=== PATIENT | male | born 1995 | race Caucasian/White ===

== ENCOUNTER 2025-03-23 09:51 | Outpatient (AMB) | payer BC, SELFPAY ==
--- NOTE | 2025-03-23 09:52 | A.OFFPC_ITS ---
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 Logistics Technician Required: No Allergies No Known Allergies Allergy (Verified 03/23/25 10:05) Medication List - Last Reconciled 03/23/25 by VINCENT Loyd No Known Home Meds Tobacco use date assessed: 03/23/25 Dental Screening Dental Screen Date: 03/23/25 Did you have a dental visit in the last 12 months?: No Did you have a dental problem in the last 6 months where you did not have access to dental care?: No Was dental information given to patient?: Yes HPI HPI Comments History of Present Illness Details 30 y/o M with obesity, tourrettes with t ic disorder, ADHD, Speech delay/stuttering, mitral regurg, hypogonadism, 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 Mom, Johnna, provides details. Pediatric records reviewed. Morbid obesity: - The patient has a past medical history of morbid obesity with a BMI of 51.8. - His mother expressed concern about his risk for diabetes. s/p repair of transitional AV canal repair 10 months old/Mitral Regurg - The patient had major surgery for an a trioventricular (AV) canal defect - He saw a tennis instructor annually for fior tsang and then every two years, but follow- up was discontinued when he turned 18. - He is overdue for cardiology follow-up . - Offers no cardiac complaints History of Tourette's syndrome/ADHD - The patient was diagnosed with Tourett e's syndrome at a young age. - He currently has minimal symptoms, wit h only some tics noted. - Was on meds in childhood. None now. History of Ady-Schlatter disease R knee: - The patient was diagnosed in [facility] with a bump on his right knee, consistent with Oriental-Schlatter disease. - The condition does not currently bothe r him much and does not impede his ability to walk. History of developmental disorder: - The patient underwent extensive testin g as a child under a PDD umbrella. - He had an Individualized Education Pro gram (IEP) throughout school. - No definitive diagnosis was ever label ed, but providers agreed a condition was present. Hypogonadism s/p Testosterone injections. Was ff'd by Bessy yu in the past. Past Medical History - Morbid obesity (BMI 51.8) - Surgical repair of an atrioventricular (AV) canal defect at approximately age 1 - Tourette's syndrome diagnosed in child hamm - Developmental disorder evaluation in [facility] (under a PDD umbrella ) - Ady-Schlatter disease of the right knee diagnosed in [facility] Review of Systems - Neurological: Reports occasional tics. - Musculoskeletal: Reports a bump on the right knee which does not cause sign ificant pain. - Constitutional: Denies feeling antsy o r unusually stressed. Physical Exam General: Well developed, well nourished, in no acute distress. Appears stated age. Head: Normocephalic, atraumatic. Eyes: Pupils are equal, round and reactive to light and accommodation. Conjunctivae are clear. Lungs: Clear to auscultation bilaterally. No rales, rhonchi or wheeze noted. Good air flow in all regalado. Heart: Regular rate and rhythm, 2/6 systolic murmur Pulses: Peripheral pulses are equal and palpable bilaterally. Extremities: No clubbing, cyanosis nor edema is noted. Psych: Mood and affect appropriate. Neuro: Tic movements of head/neck. Defers to mom for details. Offers simple explanation of things. Results Pending Medical Decision Making The patient is a 30-year-old male with morbid obesity and multiple historical medical issues presenting to establish care. His blood pressure is elevated at 154/82 mmHg, which is a primary concern. To better assess this, I have recommended he begin home blood pressure monitoring with a wrist cuff for ease of use and will recheck his pressure at a two-week follow-up. Given the complexity of his cardiac history, specifically the AV canal repair and subsequent loss to follow-up, a cardiology referral is necessary. I will review his previous medical records before placing the referral to ensure continuity of care. The murmur heard today is likely postsurgical but requires specialist evaluation. To address the metabolic risks associated with his obesity, comprehensive labs, including a non-fasting A1c, will be drawn today. The patient is due for vaccinations, so Tdap and influenza immunizations will be administered during this visit. Regarding his chronic right knee bump from Oriental-Schlatter disease, I recommended a patella strap to prevent future arthritic changes. The patient will return in two weeks to review all results and reassess his blood pressure. Plan 1. Morbid Obesity - Ordered comprehensive labs, including a non-fasting HbA1c, to screen for metabolic disease, including diabetes. - Plan to follow up in 2 weeks to review lab results and discuss further management. 2. Elevated BP - Blood pressure was elevated on two tawnya dings during the visit, with the latter being 154/82 mmHg. - Recommended the patient purchase a wri st blood pressure cuff for home monitoring due to its ease of use. - Will recheck blood pressure at the 2-w gwinn follow-up visit before making a decision on initiating antihypertensive therapy. 3. s/p repair of transitional AV canal r epair 10 months old/MVR - Will place a referral to cardiology [facility], as the patient has been lost to follow-up since age 18. 4. History Of Ady-Schlatter Disease O f The Right Knee - Recommended the use of a jumper's knee patella strap to prevent the condition from worsening and to reduce the risk of future arthritis. 5. Preventative Care: Establishment Of C are - Administered influenza and Tdap immuni zations today. - Instructed patient and mother on activ ating and using the patient portal for communication and accessing results. - Scheduled a follow-up visit in [facility]. 6. Hypogonadism: Check T levels, if low consider referral to Uro or Endo. Patient Instructions - You will receive a flu shot and a teta nus (Tdap) shot today. - Please go to the lab for a blood draw before you leave the office today. - Purchase a wrist blood pressure cuff a nd check your blood pressure at home. When you take it, sit with your feet flat on the floor and your arm relaxed on a table. - Consider wearing a jumper's knee jimenez lla strap on your right knee to prevent problems in the future. - Schedule a follow-up appointment at [facility] for two weeks from now. - You will receive an email to activate the patient portal. Please open the link in the email today, as it expires in 24 hours. Use the portal to message our office in the future. - Before you leave, please stop at the f ront desk to sign a consent form that allows your mother to be involved in your medical care. Consent The patient's mother requested to be fully involved in his care. It was noted that a disclosure authorization form was not on file. The patient and his mother were instructed to ask the vest front presser to sign the appropriate consent form before leaving the office to ernie this authorization. Patient was informed and verbally consented to the use of an ambient scribe for clinic note documentation during this visit. Total time spent caring for the patient today was 60 minutes. This includes time spent before the visit reviewing the chart, time spent during the visit, and time spent after the visit on documentation, reviewing laboratory results, diagnostic imaging, medications, performing a medically necessary evaluation, counseling on diagnoses, care coordination, ordering appropriate tests, ordering appropriate medications, review of tests performed by other providers, reporting test results with the patient, communication with other healthcare providers. [facility] Medical History (Updated 03/23/25 @ 10:49 by TOM LoydKAYLEE) AV canal Surgical History (Updated 03/23/25 @ 10:48 by TOM LoydKAYLEE) History of open heart surgery No pertinent past surgical history Family History (Updated 03/23/25 @ 10:40 by Syd Stewart MA) Paternal Grandmother Cancer Social History (Updated 03/23/25 @ 10:01 by Syd Stewart MA) Household Members: None Both parents involved: No Caregiver staying overnight: No Housing: House Are you a primary veterinarian laboratory animal care to a significant other at home: No Do you presently have visiting nurse or other home services: No 75 years or older and lives alone: No Alcohol intake: current Alcohol intake frequency: a few times a week Patient Tobacco Use Status: Never used Tobacco e-Cigarette/Vaping Use: Never Used Second Hand Smoke Exposure: No service: No Current occupational status: employed Current occupation: [employer] Cognitive needs: No Hearing needs: No Vision needs: No Questionnaire PHQ-9 Over the last 2 weeks, how often have you been bothered by any of the following problems? 1. Little interest or pleasure in doing things: not at all 2. Feeling down, depressed, or hopeless: not at all 3. Trouble falling or staying asleep, or sleeping too much: several days 4. Feeling tired or having little energy: several days 5. Poor appetite or overeating: not at all 6. Feeling bad about yourself - or that you are a failure or have let yourself or your family down: not at all 7. Trouble concentrating on things, such as reading the newspaper or watching television: not at all 8. Moving or speaking so slowly that other people could have noticed. Or the opposite - being so fidgety or restless that you have been moving around a lot more than usual: not at all 9. Thoughts that you would be better off or of hurting yourself in some way: not at all Total score: 2 Depression Screening Interpretation: Negative Depression Screening Done: Yes 53205 - PHQ-9 Billing: Yes Source: Developed by Drs. Nick Russo, Bryanna Alexandra, Tom Simmons and colleagues, with an educational ernie from [employer]. Thrive Questionnaire Date Thrive assessed: 03/23/25 I am a: Patient What is your living situation today?: I have a steady place to live Within the past 12 months, did the food you bought not last and you didn't have the money to get more?: Never true Within the past 12 months, did you worry whether your food would run out before you got money to buy more?: Never true Do you have trouble paying for medicines?: No Do you have trouble getting transportation to medical appointments?: No Do you have trouble paying your heating and electricity bill?: No Do you have trouble taking care of your child, family member or friend?: No Do you have trouble with day-to-day activities such as bathing, preparing meals, shopping, managing finances, etc.?: No Are you currently unemployed and looking for a job?: No Are you interested in more education?: Yes Please select the resources that you would like help with: Housing/Jail and Food Currently or been in a relationship where the following occur: No concerns reported THRIVE Score: 0 AUDIT C Alcohol Use Questionnaire (AUDIT-C) 1. How often do you have a drink containing alcohol?: 2-3 times a week 2. How many drinks containing alcohol do you have on a typical day when you are drinking?: 3 or 4 3. How often do you have six or more drinks on one occasion?: Never Total Score: 4 Score Reviewed/Action Taken: Yes NATHANIEL-7 AMB Questionnaire NATHANIEL-7 Date NATHANIEL - 7 assessed: 03/23/25 Feeling nervous, anxious, or on edge: 0 = Not at all Not being able to stop or control worryin = Not at all Worrying too much about different things: 1 = Several days Trouble relaxin = Not at all Being so restless that it is hard to sit still: 0 = Not at all Becoming easily annoyed or irritable: 0 = Not at all Feeling afraid as if something awful might happen: 0 = Not at all Total NATHANIEL-7 score (0-4 normal; 5-9 mild; 10-14 moderate; 15-21 severe): 1 Source: Developed by Drs. Nick Russo, Bryanna Alexandra, Tom Simmons and colleagues, with an educational ernie from [employer]. NATHANIEL-7 Assessment Billing NATHANIEL-7 Assessment Tool: NATHANIEL-7 Assessment 84025 Physical exam (Primary Care) Vital Signs: Last Vital Signs Temp 97.2 F 03/23/25 09:58 Pulse 93 03/23/25 09:58 Resp 14 03/23/25 09:58 BP 154/84 H 03/23/25 10:17 Pulse Ox 95 03/23/25 09:58 Oxygen Delivery Method Room Air 03/23/25 09:58 BMI result Body Mass Index 51.8 BMI Assessment/Plan discussion: High BMI High, discussed plan: lifestyle Tobacco/Smoking Status: Tobacco use Status Tobacco use date assessed 03/23/25 03/23/25 09:56 Patient Tobacco Use Status Never used Tobacco 03/23/25 10:01 e-Cigarette/Vaping Use Never Used 03/23/25 10:01 PHQ-9: PHQ-9 Score PHQ-9: Total score 2 03/23/25 10:06 Depression Screening Interpretation: Negative Thrive Assessment: Date of Thrive Assessment Date Thrive assessed 03/23/25 03/23/25 09:56 Currently or been in a relationship where the following occur: No concerns reported Office Procedures Flu Questionnaire Does the patient have a severe egg allergy?: No Does the patient have severe life threatening allergies?: No Does the patient have a fever or illness today?: No Has the patient ever had Guillain-Winfield Syndrome?: No Has the patient ever had any past reaction to a flu shot?: No Immunizations Fluarix [id number] (PF) 45 mcg (15 mcg x 3)/0.5 mL IM syringe Performing Provider: INNA Loyd Performing Location: [facility] Family Medicine Administered by: Syd Stewart MA on 03/23/25 10:37 Dose Route Admin Location Dispensed Lot Number Expiration Date NDC Mushroom Grower 0.5 mL IM Left Deltoid 0.5 mL [id number] 11/17/25 [id number] [employer] SM[employer] VIS Given Date VIS Provided VIS Publication Date 03/23/25 Single Vaccine 24 Eligibility Eligibility Date Funding Source Not VFC Eligible 03/23/25 Private Boostrix Tdap 2.5 Lf unit-8 mcg-5 Lf/0.5 mL intramuscular syringe Performing Provider: INNA Loyd Performing Location: [facility] Family Medicine Administered by: Syd Stewart MA on 03/23/25 10:37 Dose Route Admin Location Dispensed Lot Number Expiration Date ND Mushroom Grower 0.5 mL IM Right Deltoid 0.5 mL [id number] 04/17/27 [id number] [employer]LAX KeynoirITHKLINE Total Dispensed Waste 0.5 mL 0 % VIS Given Date VIS Provided VIS Publication Date 03/23/25 Single Vaccine 20 Eligibility Eligibility Date Funding Source Not VFC Eligible 03/23/25 Private Coding Level of Care Code New Pt Level 5 (33200) Complex EM visit Add On G2211 Diagnoses Encounter to establish care Z76.89 BMI 50.0-59.9, adult Z68.43 Tic disorder F95.9 Tourettes disorder F95.2 Laboratory exam ordered as part of routine general medical examination Z00.00 Need for Tdap vaccination Z23 Influenza vaccination administered at current visit Z23 Atrioventricular canal (AVC), transitional Q21.22 Mitral regurgitation I34.0 Ady-Schlatter's disease of right lower extremity M92.521 Developmental delay, borderline R62.50 ADHD F90.9 Stuttering F80.81 Hypogonadism in male E29.1 Elevated blood pressure reading in office without diagnosis of hypertension R03.0 Additional Codes NATHANIEL-7 Assessment Billing - NATHANIEL-7 Assessment Tool: NATHANIEL-7 Assessment 33834 ([id number]) PHQ-9 - 30962 - PHQ-9 Billing: Yes ([id number]) Assessment & Plan Assessment & Plan (1) Encounter to establish care: Code(s): Z76.89 - Persons encountering health services in other specified circumstances (2) BMI 50.0-59.9, adult: Code(s): Z68.43 - Body mass index [BMI] 50.0-59.9, adult Category: Medical (3) Tic disorder: Code(s): F95.9 - Tic disorder, unspecified Category: Medical (4) Tourettes disorder: Code(s): F95.2 - Tourette's disorder Category: Medical (5) Laboratory exam ordered as part of routine general medical examination: Code(s): Z00.00 - Encounter for general adult medical examination without abnormal findings Category: Medical (6) Need for Tdap vaccination: Code(s): Z23 - Encounter for immunization Category: Medical (7) Influenza vaccination administered at current visit: Code(s): Z23 - Encounter for immunization Category: Medical (8) Atrioventricular canal (AVC), transitional: Comment: S/P REPAIR AGE 10 MONTHS Code(s): Q21.22 - Transitional atrioventricular septal defect Category: Medical (9) Mitral regurgitation: Code(s): I34.0 - Nonrheumatic mitral (valve) insufficiency Category: Medical (10) Oriental-Schlatter's disease of right lower extremity: Code(s): 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, right leg Category: Medical (11) Developmental delay, borderline: Comment: Mom, Johnna, is the preferred contact Code(s): R62.50 - Unspecified lack of expected normal physiological development in childhood Category: Medical (12) ADHD: Code(s): F90.9 - Attention-deficit hyperactivity disorder, unspecified type Category: Medical (13) Stuttering: Code(s): F80.81 - Childhood onset fluency disorder Category: Medical (14) Hypogonadism in male: Code(s): E29.1 - Testicular hypofunction Category: Medical (15) Elevated blood pressure reading in office without diagnosis of hypertension: Code(s): R03.0 - Elevated blood-pressure reading, without diagnosis of hypertension Category: Medical Plan . Orders: Orders Complete Blood Count no Diff Today Z00.00 - Encounter for general adult medical examination without abnormal findings Comprehensive Met. Panel Today Z00.00 - Encounter for general adult medical examination without abnormal findings Hemoglobin A1c Today Z00.00 - Encounter for general adult medical examination without abnormal findings Microalbumin, Random (w Creat) Today Z00.00 - Encounter for general adult medical examination without abnormal findings TDaP Immunization Today Z23 - Encounter for immunization Influenza [id number] Immunization Today Z23 - Encounter for immunization Lipid Panel Today Z00.00 - Encounter for general adult medical examination without abnormal findings TSH reflex Free T4 Today Z00.00 - Encounter for general adult medical examination without abnormal findings Vitamin B12 and Folate Today Z00.00 - Encounter for general adult medical examination without abnormal findings Vitamin D 25-OH Total Today Z00.00 - Encounter for general adult medical examination without abnormal findings Testosterone, Free/Total Today E29.1 - Testicular hypofunction Referrals Cardiology Referral I34.0 - Nonrheumatic mitral (valve) insufficiency, Q21.22 - Transitional atrioventricular septal defect Patient Instructions: Walk-In Care (Urgent Care): We Make it Easy Walk-in for urgent medical issues such as: ? Seasonal Allergies ? Insect Bites ? Cough ? Diarrhea ? Acute Asthma Attacks ? Back, Knee or Joint Pain ? Ear Infection ? Fever without a Rash ? Headaches ? Nausea ? Suff[place] Eye, Rash or Skin Irritation ? Sore Throat ? Sports Physicals ? Vomiting Most insurances are accepted. Patients do not need to be part of the [facility] to seek care at the walk-in clinic. Locations [address], [place] Open Sunday through Sunday 8am-5pm *Hours may vary due to staffing availability. To confirm Walk-In Care hours please call. [facility] [address] [address] ? [phone] [facility] Walk-In Care in [place] provides services to ages 18 and over. Open Sunday-Sunday: 7 a.m. to 5 p.m. and Sunday: 9 a.m. to 3 p.m.* *Hours may vary due to staffing availability. To confirm Walk-In Care hours in [place], please call [phone]. [address] [place] [address] ? [phone] [facility] Walk-In Care in [place] provides services to ages 12 and over. Open Sunday-Sunday: 8 a.m. to 5 p.m. Hours may vary due to staffing availability. To confirm Walk-In Care hours in [place], please call [phone]. LABORATORY SERVICES: [facility] Lab ? Primary Location [address] [place] [address] Sunday through Sunday 6:00 AM ? 5:00 PM Sunday 7:00 AM ? 11:00 AM* [phone] The [facility] Lab is centrally located near the front entrance of the [facility] for easy outpatient access. Convenient parking is provided for outpatients. *Hours may vary due to staffing availability. To confirm Laboratory hours for any location, please call [phone]. Offsite Location For your convenience, we offer offsite laboratory draw stations at the following locations: [address] [place] [address] ? [address], [address] Sunday through Sunday 7:30 AM ? 1:00 PM* [phone] *Hours may vary due to staffing availability. To confirm Laboratory hours for any location, please call [phone]. [place] ? [address] Sunday through Sunday 6:00 AM ? 3:30 PM* Sunday 6:30 AM ? 3 PM* [phone] *Hours may vary due to staffing availability. To confirm Laboratory hours for any location, please call [phone] [place] [address] Sunday through Sunday 7:30 AM ? 4:00 PM* [phone] *Hours may vary due to staffing availability. To confirm Laboratory hours for any location, please call [phone]. [facility] Sunday through 9:00 AM ? 4:00 PM* *Hours may vary due to staffing availability. To confirm Laboratory hours for any location, please call [phone]. Appointments are not necessary. Walk-ins are welcome. Like all the departments throughout the [facility], our Lab undergoes frequent reviews to ensure the quality and accuracy of test results, and our staff takes special pride in its status as a nationally accredited facility. Patient Portal: [facility] ONE PATIENT. ONE RECORD. BETTER CARE. [facility] has a fully integrated, cutting- edge mobile electronic health information system that has revolutionized the way we care for our patients and manage our organization. This system improves communication and coordination enabling us to provide safe, higher-quality care, and an overall positive experience for staff and patients. Our first priority, as always, is to deliver the highest quality care possible. The system is running in the background supporting that priority. This portal is for all [facility] services and practices. If you are experiencing any technical difficulties with enrolling or logging into the Patient Portal please complete the [facility] Patient Portal Technical Support Form. [facility] now offers a new secure on-line interactive tool for patients to review their health information ? ?Patient Portal. This interactive web portal will enable patients and their families to take an active role in their care by providing easy, secure access to their health information via the internet. The Patient Portal provides patients with instant access to their health information, including laboratory results, medications, allergies, demographic information, visit history, and more. In addition to managing their own care, parents and health care proxies with authorized consent will appreciate the ability to access the records of those individuals for whom they provide care. Please note: if you wish to gain access (Proxy) to another patient?s portal, you will be required to come to the Medical Records Department in person at [facility]. Both the patient giving proxy access and the proxy will need to provide photo identification and complete the appropriate authorization. The Patient Portal also allows track their appointments online. The [facility] Patient Portal also saves patients time by allowing them to submit updates to their demographic and contact information prior to their visits. Portal email notifications will also alert patients to any new activity on their portal, such as test results and new appointments. In order to initially enroll in the [facility] Patient Portal, you will need to enter some required information including the following: * your [facility] Medical Record number * your personal home email address * name * date of Please note: In order to enroll in the [facility] Patient Portal, we need to have your email address on file in your electronic medical record. ?The email address needs to be specific for one person (yourself) in order for your Portal enrollment to be successful. ?You can update your email address in person with our Registration staff when you are registering for a hospital visit. ?Otherwise, you will need to come to the Health Information Management (Medical Records) Department at [facility]. ?We are open from Sunday ? Sunday from 7:30 a.m. ? 4:30 p.m. ?You will be required to present a photo id. Once you have successfully enrolled in the Patient Portal, you will receive a one-time user id and password for the Portal, sent to your email address. ?This will allow you to log into the Patient Portal within 99 hrs and reset your own logon id and password, and define personal security questions. ?Once your permanent login and password have been set, you can log into the [facility] Patient Portal at any time via the blue button above or from the Portal Logon button on any page of the [facility] website. [facility] and [facility] encourage all of our patients to enroll in Patient Portal as it presents a valuable opportunity for patients and their families to actively participate in their care and stay healthy Welcome to [facility]. ?We look forward to working with you.
[2025-03-23 09:58] VITALS: BP 152/74; PULSE 93; RESP 14; TEMP 36.2; O2SAT 95; BMI 51.8
[2025-03-23 10:17] VITALS: BP 154/84
== END 2025-03-23 10:38 | disposition home or self-care (01) ==
LOC: HO.HMCFM 09:51
PROVIDERS: PCP Nurse Practitioner Family; Visit Provider Nurse Practitioner Family
DX: Z76.89 Persons encountering health services in other specified circumstances (principal); F90.9 Attention-deficit hyperactivity disorder, unspecified type; Z68.43 Body mass index [BMI] 50.0-59.9, adult; F95.9 Tic disorder, unspecified; F95.2 Tourette's disorder; Z00.00 Encounter for general adult medical examination without abnormal findings; Z23 Encounter for immunization; Q21.22 Transitional atrioventricular septal defect; I34.0 Nonrheumatic mitral (valve) insufficiency; M92.521 Juvenile osteochondrosis of tibia tubercle, right leg; R62.50 Unspecified lack of expected normal physiological development in childhood; F80.81 Childhood onset fluency disorder; E29.1 Testicular hypofunction; R03.0 Elevated blood-pressure reading, without diagnosis of hypertension

== ENCOUNTER 2025-03-23 09:51 | Outpatient (REF) | payer BC, SELFPAY ==
[2025-03-23 14:14] LABS: Hematocrit 44.1 % (42.0-52.0); Hemoglobin 14.8 g/dl (14.0-18.0); Mean Corpuscular HGB Conc 33.6 g/dl (31.0-36.0); Mean Corpuscular Hemoglobin 30.8 pg (27.0-33.0); Mean Corpuscular Volume 91.7 fL (80.0-98.0); NRBC Abs Auto 0.000 X10*3/uL (0.0-0.012); NRBC Pct Auto 0.0 /100WBC (0.0-0.2); Platelet Count 389 X10*3/uL (160-400); Red Blood Count 4.81 X10*6/uL (4.60-5.80); White Blood Count 13.9 X10*3/uL (4.8-10.8)
[2025-03-23 14:37] LABS: Microalbum/Creatinine Ratio Ur 5.4 ug/mg cr (<30)
[2025-03-23 14:47] LABS: Alanine Aminotransferase 55 U/L (0-40); Albumin Level 4.7 g/dL (3.5-5.0); Alkaline Phosphatase 86 U/L (39-117); Anion Gap 12 (12-20); Aspartate Amino Transferase 64 U/L (5-37); Blood Urea Nitrogen 19 mg/dL (9-16); Calcium 9.2 mg/dL (8.4-10.2); Carbon Dioxide 27 mmol/L (22-29); Chloride 106 mmol/L (96-108); Cholesterol 154 mg/dL (<200); Estimated Glomerular Filt Rate > 60; HDL Cholesterol 31 mg/dL (>40); Potassium 3.8 mmol/L (3.3-5.1); Sodium 141 mmol/L (135-145); Total Protein 7.8 g/dL (6.5-8.0); Triglycerides 321 mg/dL (<150)
[2025-03-23 15:03] LABS: Folate 11.0 ng/mL (> or = 4.0); Vitamin B12 624 pg/mL (200-900)
[2025-03-29 11:09] LABS: Testosterone, Free 55.9 pg/mL (35.0-155.0)
== END 2025-03-23 09:52 | disposition home or self-care (01) ==
LOC: HO.WFDLDS 09:51
PROVIDERS: PCP Nurse Practitioner Family; Visit Provider Nurse Practitioner Family
DX: Z00.00 Encounter for general adult medical examination without abnormal findings (principal); E66.01 Morbid (severe) obesity due to excess calories; F95.2 Tourette's disorder; F90.9 Attention-deficit hyperactivity disorder, unspecified type; M92.521 Juvenile osteochondrosis of tibia tubercle, right leg; E29.1 Testicular hypofunction; F95.9 Tic disorder, unspecified; Q21.22 Transitional atrioventricular septal defect; I34.0 Nonrheumatic mitral (valve) insufficiency; R62.50 Unspecified lack of expected normal physiological development in childhood; F80.81 Childhood onset fluency disorder; R03.0 Elevated blood-pressure reading, without diagnosis of hypertension; Z23 Encounter for immunization; Z76.89 Persons encountering health services in other specified circumstances; Z68.43 Body mass index [BMI] 50.0-59.9, adult; Z13.1 Encounter for screening for diabetes mellitus
CPT/HCPCS: 36415; 80053; 80061; 82043; 82306; 82570; 82607; 82746; 83036; 84402; 84403; 84443; 85027; 90471; 90472; 90656; 90715; 96127

== ENCOUNTER 2025-05-06 10:04 | Outpatient (AMB) | payer BC, SELFPAY ==
--- NOTE | 2025-05-06 10:11 | A.OFFPC_ITS ---
Vital Signs 05/06/25 10:17 05/06/25 10:43 05/06/25 10:43 Height 6 ft Weight 387 lb 6 oz BMI 52.5 BP 140/80 H 134/90 H 145/103 H Blood Pressure Location Rt brachial Rt brachial Lt radial Position Sitting Sitting Sitting Respiration 14 Pulse 91 Pulse Source Pulse Oximeter Temp 97.7 F Temp Source Oral Pulse Oximetry (%) 98 Oxygen Delivery Method Room Air Intake Visit Reasons: 2 weeks 30 min FU BP/labs Intake Note: Follow up to htn and review labs. Patient c/o right knee px and patient was wrapping it but is not helping. Rn School Required: No Allergies No Known Allergies Allergy (Verified 05/06/25 10:40) Medication List - Last Reconciled 05/06/25 by INNA Loyd No Known Home Meds Tobacco use date assessed: 05/06/25 Dental Screening Dental Screen Date: 05/06/25 Did you have a dental visit in the last 12 months?: Yes Did you have a dental problem in the last 6 months where you did not have access to dental care?: No Was dental information given to patient?: Patient has dentist HPI HPI Comments History of Present Illness Details 30 y/o M with obesity, tourrettes with t ic disorder, ADHD, Speech delay/stuttering, mitral regurg, hypogonadism, 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 Essential Hypertension: - The patient has had elevated blood pre ssure readings, with home measurements in the 140s systolic. - Home blood pressure log readings inclu ded 152/88, 138/87, 135/92, and one high reading of 155/105. - A referral was previously made to [facility] for care s/p repair of transitional AV canal repair 10 months old , but the patient had not yet called to schedule the appointment. Metabolic abnormalities: - Lab work from March 23 revealed se veral abnormalities. - The patient's white blood cell count w as slightly elevated at 13.9, though he did not recall being ill at the time. - Liver enzymes (AST 64, ALT 55) were sl ightly elevated, a finding also noted on past lab work. - Lipid panel showed high triglycerides at 321 and low HDL at 31. - He was also found to have low vitamin D and low testosterone levels. - The patient has a history of low testo sterone managed by pediatric endocrinology with shots in the past. Knee Pain R: - The patient has ongoing knee pain for which he uses a band. - The band was initially helpful but see ms less effective recently. 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 - He recently experienced increased pain that caused him to walk with a limp. Review of Systems - Constitutional: Denies feeling sick at the time of his labs in March. - Endocrine: Denies diabetes. - Musculoskeletal: Reports intermittent knee pain, sometimes causing a limp, which is aggravated by pivoting movements at work. Physical Exam General: Well developed, well nourished, in no acute distress. Appears stated age. Head: Normocephalic, atraumatic. Eyes: Pupils are equal, round and reactive to light and accommodation. Conjunctivae are clear. Lungs: Clear to auscultation bilaterally. No rales, rhonchi or wheeze noted. Good air flow in all regalado. Heart: Regular rate and rhythm, 2/6 systolic murmur Pulses: Peripheral pulses are equal and palpable bilaterally. Extremities: No clubbing, cyanosis nor edema is noted. Psych: Mood and affect appropriate. Neuro: Tic movements of head/neck. Defers to mom for details. Offers simple explanation of things. Results see below - In-office blood pressure: 134/90 mmHg (manual cuff). Medical Decision Making The patient is a 30-year-old male with confirmed hypertension based on elevated home and in-office readings, necessitating initiation of antihypertensive medication. I will prescribe valsartan 40 mg, a low-dose ARB, to begin treatment. His lab work reveals a constellation of metabolic issues including mixed hyperlipidemia and mildly elevated transaminases, consistent with non- alcoholic fatty liver disease, especially given his history. These conditions, along with his hypertension, will benefit significantly from diet and lifestyle changes. A referral to a room designer is indicated and was placed, with a virtual option available for the patient's convenience. His known history of low testosterone and current low levels warrant specialist evaluation for energy, muscle, and bone health implications. I have referred him to Endocrinology, which is a better fit than Urology as they can provide comprehensive care for his testosterone, fatty liver, and other metabolic issues, and offer the virtual visits he prefers. He also has vitamin D deficiency, which will be addressed with an [id number] supplement. For his knee pain, which appears to be mechanical and related to his work, a conservative approach with topical diclofenac cream is a reasonable first step. We will follow up in 8 weeks to assess his blood pressure response and repeat labs, specifically a BMP to monitor for hyperkalemia from valsartan and a CBC to re-evaluate the leukocytosis. Plan 1. Essential Hypertension/ repair of tra nsitional AV canal repair 10 months old - Initiate valsartan 40 mg once daily. - The goal is to achieve consistent bloo d pressure readings with systolic < 140 mmHg and diastolic < 90 mmHg. - Patient to continue home blood pressur e monitoring and bring log to follow-up. - Patient advised to call and schedule t he pending cardiology referral appointment with [facility]. 2. Mixed Hyperlipidemia And Non-Alcoholi c Fatty Liver Disease - Placed referral to nutrition for diet and lifestyle counseling, with a virtual option available. - Encouraged increased physical activity to help improve HDL cholesterol. 3. Hypogonadism - Placed referral to endocrinology for e valuation and management of low testosterone. - This specialty was chosen as they can also help manage his other metabolic issues and offer virtual follow-ups. 4. Vitamin D Deficiency - Prescribed a daily vitamin D supplemen t. 5. Knee Pain R - Advised to apply a topical anti-inflam matory cream before work and then place his knee band over it. - Prescribed diclofenac cream and advise d of the [id number] alternative Voltaren if the prescription is denied or has a high copay. 6. Leukocytosis - Will recheck CBC with his other labs a t the next visit to ensure normalization. 7. Follow-Up Care - [facility] a [facility]. - Labs (BMP to check potassium and CBC) to be drawn at the time of the next visit; fasting is not required. Patient Instructions - Take one valsartan 40 mg tablet by johnnie th once daily for your blood pressure. - Take one vitamin D tablet by mouth onc e daily. - Continue to check your blood pressure at home. Please bring your blood pressure machine and its readings to your next appointment. - For your knee pain, apply the prescrib ed anti-inflammatory cream (diclofenac) to the area before work, then put your knee band on. If your insurance does not cover this or it is too expensive, you can buy Voltaren cream over the counter. - You will need to [facility] to schedule your senior design engineering specialist appointment. - Our office will call you to schedule a ppointments with a room designer (for diet) and an section leader screen printing (for hormones). These will be at the [place] office, but you can do some visits virtually. - Return to the clinic in about 8 weeks for a follow-up visit to recheck your blood pressure and get blood work done. You do not need to fast for the blood test. Consent The patient and his mother were present for the discussion of the assessment and plan. They verbally agreed to the new medications (valsartan, vitamin D, topical diclofenac), specialist referrals (cardiology, endocrinology, nutrition), and follow-up plan, including repeat lab work. All questions were answered. Patient was informed and verbally consented to the use of an ambient scribe for clinic note documentation during this visit. Total time spent caring for the patient today was 40 minutes. This includes time spent before the visit reviewing the chart, time spent during the visit, and time spent after the visit on documentation, reviewing laboratory results, diagnostic imaging, medications, performing a medically necessary evaluation, counseling on diagnoses, care coordination, ordering appropriate tests, ordering appropriate medications, review of tests performed by other providers, reporting test results with the patient, communication with other healthcare providers. [facility] Medical History (Updated 05/06/25 @ 11:30 by INNA Loyd) AV canal Surgical History (Updated 03/23/25 @ 10:48 by INNA Loyd) History of open heart surgery No pertinent past surgical history Family History (Updated 03/23/25 @ 10:40 by Syd Stewart MA) Paternal Grandmother Cancer Social History (Updated 03/23/25 @ 10:01 by Syd Stewart MA) Household Members: None Both parents involved: No Caregiver staying overnight: No Housing: House Are you a primary dialysis patient care technician to a significant other at home: No Do you presently have visiting nurse or other home services: No 75 years or older and lives alone: No Alcohol intake: current Alcohol intake frequency: a few times a week Patient Tobacco Use Status: Never used Tobacco e-Cigarette/Vaping Use: Never Used Second Hand Smoke Exposure: No service: No Current occupational status: employed Current occupation: [employer] Cognitive needs: No Hearing needs: No Vision needs: No Questionnaire PHQ-9 Over the last 2 weeks, how often have you been bothered by any of the following problems? 1. Little interest or pleasure in doing things: not at all 2. Feeling down, depressed, or hopeless: not at all 3. Trouble falling or staying asleep, or sleeping too much: not at all 4. Feeling tired or having little energy: not at all 5. Poor appetite or overeating: not at all 6. Feeling bad about yourself - or that you are a failure or have let yourself or your family down: not at all 7. Trouble concentrating on things, such as reading the newspaper or watching television: not at all 8. Moving or speaking so slowly that other people could have noticed. Or the opposite - being so fidgety or restless that you have been moving around a lot more than usual: not at all 9. Thoughts that you would be better off or of hurting yourself in some way: not at all Total score: 0 Depression Screening Interpretation: Negative Depression Screening Done: Yes 51662 - PHQ-9 Billing: Yes Source: Developed by Drs. Nick Russo, Bryanna Alexandra, Tom Simmons and colleagues, with an educational ernie from [employer]. Thrive Questionnaire Date Thrive assessed: 05/06/25 I am a: Patient What is your living situation today?: I have a steady place to live Within the past 12 months, did the food you bought not last and you didn't have the money to get more?: Never true Within the past 12 months, did you worry whether your food would run out before you got money to buy more?: Never true Do you have trouble paying for medicines?: No Do you have trouble getting transportation to medical appointments?: No Do you have trouble paying your heating and electricity bill?: No Do you have trouble taking care of your child, family member or friend?: No Do you have trouble with day-to-day activities such as bathing, preparing meals, shopping, managing finances, etc.?: No Are you currently unemployed and looking for a job?: No Are you interested in more education?: Yes Currently or been in a relationship where the following occur: No concerns reported THRIVE Score: 0 NATHANIEL-7 AMB Questionnaire NATHANIEL-7 Date NATHANIEL - 7 assessed: 05/06/25 Feeling nervous, anxious, or on edge: 0 = Not at all Not being able to stop or control worryin = Not at all Worrying too much about different things: 0 = Not at all Trouble relaxin = Not at all Being so restless that it is hard to sit still: 0 = Not at all Becoming easily annoyed or irritable: 0 = Not at all Feeling afraid as if something awful might happen: 0 = Not at all Total NATHANIEL-7 score (0-4 normal; 5-9 mild; 10-14 moderate; 15-21 severe): 0 Source: Developed by Drs. Nick Russo, Bryanna Alexandra, Tom Simmons and colleagues, with an educational ernie from [employer]. NATHANIEL-7 Assessment Billing NATHANIEL-7 Assessment Tool: NATHANIEL-7 Assessment 38757 Physical exam (Primary Care) Vital Signs: Last Vital Signs Temp 97.7 F 05/06/25 10:17 Pulse 91 05/06/25 10:17 Resp 14 05/06/25 10:17 BP 145/103 H 05/06/25 10:43 Pulse Ox 98 05/06/25 10:17 Oxygen Delivery Method Room Air 05/06/25 10:17 BMI result Body Mass Index 52.5 Tobacco/Smoking Status: Tobacco use Status Tobacco use date assessed 05/06/25 05/06/25 10:12 Patient Tobacco Use Status Never used Tobacco 05/06/25 10:12 e-Cigarette/Vaping Use Never Used 05/06/25 10:12 PHQ-9: PHQ-9 Score PHQ-9: Total score 0 05/06/25 10:40 Depression Screening Interpretation: Negative Thrive Assessment: Date of Thrive Assessment Date Thrive assessed 05/06/25 05/06/25 10:12 Currently or been in a relationship where the following occur: No concerns reported Results Reviewed Results Reviewed: Laboratory 03/23/25 Result Units Range Interpretation Provider Comments White Blood Count 13.9 X10*3/uL (4.8-10.8) High Red Blood Count 4.81 X10*6/uL (4.60-5.80) Hemoglobin 14.8 g/dl (14.0-18.0) Hematocrit 44.1 % (42.0-52.0) Mean Corpuscular Volume 91.7 fL (80.0-98.0) Mean Corpuscular Hemoglobin 30.8 pg (27.0-33.0) Mean Corpuscular Hemoglobin Concent 33.6 g/dl (31.0-36.0) Red Cell Distribution Width 12.9 % (11.0-16.0) Platelet Count 389 X10*3/uL (160-400) Mean Platelet Volume 8.7 fL (9.4-12.4) Low Nucleated RBC Absolute Count (auto) 0.000 X10*3/uL (0.0-0.012) Nucleated Red Blood Cells % (auto) 0.0 /100WBC (0.0-0.2) Sodium Level 141 mmol/L (135-145) Potassium Level 3.8 mmol/L (3.3-5.1) Chloride Level 106 mmol/L (96-108) Carbon Dioxide Level 27 mmol/L (22-29) Anion Gap 12 (12-20) Blood Urea Nitrogen 19 mg/dL (9-16) High Creatinine 0.79 mg/dL (0.5-1.4) Estimated Creatinine Clearance Calc Not Reportable Estimat Glomerular Filtration Rate > 60 Random Glucose 89 mg/dL (60-115) Estimated Average Glucose 111 mg/dL Hemoglobin A1c Percent 5.5 % (<6.0) Calcium Level 9.2 mg/dL (8.4-10.2) Total Bilirubin 0.6 mg/dL (0.0-1.0) Aspartate Amino Transf (AST/SGOT) 64 U/L (5-37) High Alanine Aminotransferase (ALT/SGPT) 55 U/L (0-40) High Alkaline Phosphatase 86 U/L (39-117) Total Protein 7.8 g/dL (6.5-8.0) Albumin 4.7 g/dL (3.5-5.0) Triglycerides Level 321 mg/dL (<150) High Cholesterol Level 154 mg/dL (<200) LDL Cholesterol, Calculated 59 mg/dL (<100) HDL Cholesterol 31 mg/dL (>40) Low Vitamin B12 Level 624 pg/mL (200-900) 25-Hydroxy Vitamin D Total 21.4 ng/mL (>30) Low Folate 11.0 ng/mL (> or = 4.0) Thyroid Stimulating Hormone (TSH) 1.01 uIU/mL (0.32-4.0) Urine Creatinine 203.05 mg/dL Urine Microalbumin 11.0 mg/L Urine Microalbumin/Creatinine Ratio 5.4 ug/mg cr (<30) Laboratory Result Units Range Interpretation Provider Comments Total Testosterone 241 ng/dL (250-1100) Low Free Testosterone (Dialysis) 55.9 pg/mL (35.0-155.0) Coding Level of Care Code Est Pt Level 5 (30620) Add On Problem Visit Only Diagnoses Elevated liver enzymes R74.8 Dyslipidemia E78.5 Hypogonadism in male E29.1 Primary hypertension I10 Hypertension type: primary hypertension Other elevated white blood cell (WBC) count D72.828 Leukocytosis type: other Atrioventricular canal (AVC), transitional Q21.22 Mitral regurgitation I34.0 BMI 50.0-59.9, adult Z68.43 Aura-Schlatter's disease of right lower extremity M92.521 Additional Codes NATHANIEL-7 Assessment Billing - NATHANIEL-7 Assessment Tool: NATHANIEL-7 Assessment 15719 ([id number]) PHQ-9 - 91465 - PHQ-9 Billing: Yes ([id number]) Assessment & Plan Assessment & Plan (1) Elevated liver enzymes: Code(s): R74.8 - Abnormal levels of other serum enzymes Category: Medical (2) Dyslipidemia: Code(s): E78.5 - Hyperlipidemia, unspecified Category: Medical (3) Hypogonadism in male: Code(s): E29.1 - Testicular hypofunction Category: Medical (4) HTN (hypertension): Code(s): I10 - Essential (primary) hypertension Category: Medical Qualifiers: Hypertension type: primary hypertension Qualified Code(s): I10 - Essential (primary) hypertension (5) Elevated WBC count: Code(s): D72.829 - Elevated white blood cell count, unspecified Category: Medical Qualifiers: Leukocytosis type: other Qualified Code(s): D72.828 - Other elevated white blood cell count (6) Atrioventricular canal (AVC), transitional: Comment: S/P REPAIR AGE 10 MONTHS Code(s): Q21.22 - Transitional atrioventricular septal defect Category: Medical (7) Mitral regurgitation: Code(s): I34.0 - Nonrheumatic mitral (valve) insufficiency Category: Medical (8) BMI 50.0-59.9, adult: Code(s): Z68.43 - Body mass index [BMI] 50.0-59.9, adult Category: Medical (9) [place]-Schlatter's disease of right lower extremity: Code(s): 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, right leg Category: Medical Plan / Orders: Orders Basic Metabolic Panel 8 Weeks I10 - Essential (primary) hypertension Complete Blood Count no Diff 8 Weeks D72.829 - Elevated white blood cell count, unspecified Referrals Mining And Quarrying Machinery Repairer Nutrition Referral E78.5 - Hyperlipidemia, unspecified, R74.8 - Abnormal levels of other serum enzymes Endocrinology Referral E29.1 - Testicular hypofunction Medications: New cholecalciferol (vitamin D3) 50 mcg PO DAILY 90 caps 2RF valsartan 40 mg PO DAILY 90 tabs 0RF diclofenac sodium 1% (Arthritis Pain (diclofenac)) apply to single elbow, wrist or hand; for hand includes palm/fingers/back of hand 2 grams topical QID 100 grams 2RF
[2025-05-06 10:17] VITALS: BP 140/80; PULSE 91; RESP 14; TEMP 36.5; O2SAT 98; BMI 52.5
[2025-05-06 10:43] VITALS: BP 134/90; BP 145/103
== END 2025-05-06 11:07 | disposition home or self-care (01) ==
LOC: HO.HMCFM 10:05
PROVIDERS: PCP Nurse Practitioner Family; Visit Provider Nurse Practitioner Family
DX: I10 Essential (primary) hypertension (principal); E78.5 Hyperlipidemia, unspecified; E66.9 Obesity, unspecified; Z68.43 Body mass index [BMI] 50.0-59.9, adult; I34.0 Nonrheumatic mitral (valve) insufficiency; E29.1 Testicular hypofunction; R74.01 Elevation of levels of liver transaminase levels; D72.828 Other elevated white blood cell count; Q21.22 Transitional atrioventricular septal defect; M92.521 Juvenile osteochondrosis of tibia tubercle, right leg

== ENCOUNTER → 2025-05-06 10:04 | Outpatient (BNVA) | payer BC, SELFPAY | PROVIDERS: PCP Nurse Practitioner Family; Visit Provider Nurse Practitioner Family | DX: R74.8 Abnormal levels of other serum enzymes (principal); E78.5 Hyperlipidemia, unspecified; E29.1 Testicular hypofunction; I10 Essential (primary) hypertension; D72.828 Other elevated white blood cell count; Q21.22 Transitional atrioventricular septal defect; I34.0 Nonrheumatic mitral (valve) insufficiency; M92.521 Juvenile osteochondrosis of tibia tubercle, right leg | CPT/HCPCS: 96127 ==